=== PATIENT | female | born 1985 | race Caucasian/White ===

== ENCOUNTER 2016-09-11 10:09 | Emergency (ER) | payer BC ==
--- NOTE | 2016-09-11 12:14 | RAD ---
LEFT KNEE 4 VIEWS: HISTORY: Followup. COMPARISON: None. FINDINGS: No acute fracture or malalignment. No suprapatellar effusion. IMPRESSION: No acute fracture or malalignment. POS: TANVIR
== END 2016-09-11 11:10 | disposition home or self-care (01) ==
LOC: MADERS 10:09
DX: S80.02XA Contusion of left knee, initial encounter (principal); M62.838 Other muscle spasm; F41.9 Anxiety disorder, unspecified; F32.9 Major depressive disorder, single episode, unspecified; W01.0XXA Fall on same level from slipping, tripping and stumbling without subsequent striking against object, initial encounter

== ENCOUNTER 2016-11-28 12:19 | Outpatient (CLI) | payer BC, OTHER ==
[2016-12-02 11:21] LABS: Neutral Fats And/Or Soaps Normal (.)
== END 2016-11-28 12:20 | disposition home or self-care (01) ==
LOC: MADLAB 12:19
PROVIDERS: ATTEND Internal Medicine Gastroenterology
DX: R19.7 Diarrhea, unspecified (principal)
CPT/HCPCS: 36415; 82705; 83516; 84443; 87015; 87045; 87046; 87324; 87328; 87329; 87449; 87899

== ENCOUNTER 2017-02-21 11:11 | Emergency (ER) | payer OTHER | END 2017-02-21 11:40 | disposition home or self-care (01) | LOC: MADERS 11:11 | DX: J11.1 Influenza due to unidentified influenza virus with other respiratory manifestations (principal); F41.9 Anxiety disorder, unspecified; I10 Essential (primary) hypertension; F32.9 Major depressive disorder, single episode, unspecified; N83.209 Unspecified ovarian cyst, unspecified side; Z79.899 Other long term (current) drug therapy | CPT/HCPCS: 99283 ==

== ENCOUNTER 2017-09-28 11:15 | Outpatient (CLI) | payer OTHER ==
--- NOTE | 2017-09-28 13:33 | CT ---
CT CHEST WITH IV CONTRAST: Date: 09/28/17 PROVIDED CLINICAL HISTORY: Mass on echocardiogram. FINDINGS: The heart, pericardium, and great vessels demonstrate a normal CT appearance. There is no evidence of thoracic lymph node enlargement. The lungs are free of significant opacity. T here is no pleural fluid or pneumothorax apparent. The airway appears patent and of normal caliber. N o pleural fluid or pneumothorax apparent. The visualized portions of the upper abdomen demonstrate no acute process. Prominence of the common d uct and intrahepatic biliary ductal system, presumably on the basis of reservoir effect from cholecys tectomy change. The osseous structures demonstrate no evidence for any osteoblastic or osteolytic lesions. IMPRESSION: Unremarkable CT of the chest. POS: TANVIR
== END 2017-09-28 11:16 | disposition home or self-care (01) ==
LOC: MADCT 11:15
PROVIDERS: ATTEND Family Medicine
DX: R94.31 Abnormal electrocardiogram [ECG] [EKG] (principal)
CPT/HCPCS: 71260

== ENCOUNTER 2020-09-04 22:35 | Emergency (ER) | payer BC, OTHER, SELFPAY ==
[2020-09-04 23:14] LABS: #Basophils 0.2 thou/uL (0.0-0.2); #Eosinphils 0.2 thou/uL (0.0-0.7); #Lymphocytes 2.7 thou/uL (1.20-3.40); #Monocytes 0.7 thou/uL (0.11-0.59); #Neutrophils 9.6 thou/uL (1.40-6.50); %Basophils 1.3 % (0.0-1.0); %Eosinophils 1.7 % (0.0-10.0); %Lymphocytes 20.2 % (21.0-51.0); %Monocytes 4.9 % (0.0-10.0); %Neutrophils 71.8 % (42.0-75.0); Hemoglobin 11.7 g/dL (12.0-16.0); Mean Corpuscular HGB CONC 31.6 g/dL (32.0-36.0); Mean Corpuscular Hemoglobin 26.9 pg (27.0-31.0); Mean Platelet Volume 8.3 fL (7.4-10.4); Platelet Count 422 thou/uL (130-400); Red Blood Cell (RBC) Count 4.34 mill/uL (4.20-5.40); White Blood Cell (WBC) Count 13.3 thou/uL (4.8-10.8)
[2020-09-04 23:25] LABS: INR-International Normal Ratio 0.9; Prothrombin Time 12.6 sec (12.0-14.7)
[2020-09-04 23:33] LABS: ALT (SGPT) 9 U/L (8-55); AST (SGOT) 13 U/L (5-34); Albumin 4.2 g/dL (3.5-5.0); Alkaline Phosphatase 70 U/L (40-110); Anion Gap 14 mmol/L (10-20); BUN (Urea Nitrogen) 9 mg/dL (7.0-18.7); Bilirubin, Total 0.2 mg/dL (0.2-1.2); CK (CPK) 103 U/L (29-168); Calc. Creatinine Clearance 0 mL/min (70-130); Calcium 9.6 mg/dL (7.8-10.44); Carbon Dioxide 25 mmol/L (22-29); Chloride 104 mmol/L (98-107); Globulin 3.5 g/dL (2.4-3.5); Glucose 96 mg/dL (70-105); Potassium 3.5 mmol/L (3.5-5.1); Protein, Total 7.7 g/dL (6.0-8.3); Sodium 139 mmol/L (136-145)
[2020-09-04 23:47] LABS: Bilirubin Negative (Negative); Blood, Urine Small (Negative); Clarity Clear (Clear); Glucose, Urine (Dipstick) Negative (Negative); Ketone, Urine Negative (Negative); Leukocyte Negative (Negative); Nitrite Negative (Negative); Protein, Urine (Dipstick) Negative (Neg-Trace); Specific Gravity, Urine 1.015 (1.005-1.030); Urobilinogen 0.2 mg/dL (Less than 2)
[2020-09-04 23:53] LABS: Bacteria/HPF None Seen HPF (None Seen); RBC/HPF 0-3 HPF (0-3); Squamous Epithelial 0-3 HPF (0-3); WBC/HPF 0-3 HPF (0-3)
[2020-09-05] MEDS ORDERED: Sodium Chloride 0.9% 1,000 ML ONE (00:05)
[2020-09-05 00:08] LABS: Amphetamine Not Detected (NotDetected); Barbiturates Screen Not Detected (NotDetected); Benzodiazepine Screen Detected (NotDetected); Cocaine Metabolite Screen Not Detected (NotDetected); Methadone Not Detected (NotDetected); Methamphetamine Detected (NotDetected); Opiate Screen Detected (NotDetected); Phencyclidine (PCP) Not Detected (NotDetected); THC/Cannabinoid Screen Detected (NotDetected); Tricyclic Screen Not Detected (NotDetected)
[2020-09-05 00:09] LABS: Medtox Control Line Valid? VALID (VALID); Oxycodone Screen Not Detected (NotDetected)
[2020-09-05] MEDS ORDERED: Boostrix 0.5 ML (Tdap) VIAL ONE (00:54)
== END 2020-09-05 01:13 | disposition home or self-care (01) ==
LOC: MADERS 22:35
DX: T63.061A Toxic effect of venom of other North and South American snake, accidental (unintentional), initial encounter (principal); I10 Essential (primary) hypertension; Z79.899 Other long term (current) drug therapy
CPT/HCPCS: 36415; 71045; 80053; 80306; 81003; 81015; 82550; 85025; 85384; 85610; 85730; 90471; 90715; 94760; J7050

== ENCOUNTER 2020-09-05 13:53 | Emergency (ER) | payer SELFPAY ==
[2020-09-05 14:28] LABS: #Basophils 0.1 thou/uL (0.0-0.2); #Eosinphils 0.2 thou/uL (0.0-0.7); #Lymphocytes 2.3 thou/uL (1.20-3.40); #Monocytes 0.7 thou/uL (0.11-0.59); %Basophils 1.1 % (0.0-1.0); %Lymphocytes 22.6 % (21.0-51.0); %Monocytes 6.7 % (0.0-10.0); %Neutrophils 67.6 % (42.0-75.0); Hemoglobin 13.1 g/dL (12.0-16.0); Mean Corpuscular HGB CONC 31.8 g/dL (32.0-36.0); Mean Platelet Volume 7.2 fL (7.4-10.4); Platelet Count 461 thou/uL (130-400); RBC Distribution Width 14.1 % (11.5-14.5); Red Blood Cell (RBC) Count 4.86 mill/uL (4.20-5.40); White Blood Cell (WBC) Count 10.4 thou/uL (4.8-10.8)
[2020-09-05 14:42] LABS: ALT (SGPT) 10 U/L (8-55); AST (SGOT) 12 U/L (5-34); Albumin 4.2 g/dL (3.5-5.0); Alkaline Phosphatase 71 U/L (40-110); Anion Gap 14 mmol/L (10-20); BUN (Urea Nitrogen) 8 mg/dL (7.0-18.7); Bilirubin, Total 0.2 mg/dL (0.2-1.2); Calc. Creatinine Clearance 0 mL/min (70-130); Carbon Dioxide 24 mmol/L (22-29); Chloride 105 mmol/L (98-107); Globulin 3.5 g/dL (2.4-3.5); Glucose 91 mg/dL (70-105); Potassium 3.6 mmol/L (3.5-5.1); Protein, Total 7.7 g/dL (6.0-8.3); Sodium 139 mmol/L (136-145)
== END 2020-09-05 15:30 | disposition home or self-care (01) ==
LOC: MADERS 13:53
DX: R21 Rash and other nonspecific skin eruption (principal); T50.905A Adverse effect of unspecified drugs, medicaments and biological substances, initial encounter; S91.331A Puncture wound without foreign body, right foot, initial encounter; R60.0 Localized edema; I10 Essential (primary) hypertension; Z79.899 Other long term (current) drug therapy; X58.XXXA Exposure to other specified factors, initial encounter
CPT/HCPCS: 36415; 80053; 85025; 85384; 99283

== ENCOUNTER 2021-07-24 21:00 | Emergency (ER) | payer BC ==
[2021-07-24] MEDS ORDERED: Lidocaine 1% w/Epinephrine 1:100K 20 ML VIAL ONE (21:12)
[2021-07-24] MEDS ORDERED: Bacitracin 1 PK ONE (21:46)
[2021-07-24] MEDS ORDERED: Boostrix 0.5 ML (Tdap) VIAL ONE (21:52)
== END 2021-07-24 22:10 | disposition home or self-care (01) ==
LOC: MADERS 21:00
DX: S01.81XA Laceration without foreign body of other part of head, initial encounter (principal); Z23 Encounter for immunization; I10 Essential (primary) hypertension; F17.290 Nicotine dependence, other tobacco product, uncomplicated; Z79.899 Other long term (current) drug therapy; W18.30XA Fall on same level, unspecified, initial encounter; W26.8XXA Contact with other sharp object(s), not elsewhere classified, initial encounter
CPT/HCPCS: 12011; 90471; 90715

== ENCOUNTER 2023-04-04 14:45 | Emergency (ER) | payer BC, OTHER | END 2023-04-04 15:15 | disposition home or self-care (01) | LOC: MADERS 14:45 | DX: L03.211 Cellulitis of face (principal); I10 Essential (primary) hypertension; F17.200 Nicotine dependence, unspecified, uncomplicated; F17.290 Nicotine dependence, other tobacco product, uncomplicated | CPT/HCPCS: 99283 ==

== ENCOUNTER 2023-12-28 15:43 | Emergency (ER) | payer OTHER ==
[2023-12-28] MEDS ORDERED: Penicillin V Potassium 250 MG TAB ONE (16:24)
== END 2023-12-28 16:39 | disposition home or self-care (01) ==
LOC: MADERS 15:43
DX: K02.9 Dental caries, unspecified (principal); I10 Essential (primary) hypertension; F17.290 Nicotine dependence, other tobacco product, uncomplicated
CPT/HCPCS: 99283